=== PATIENT | female | born 1950 | race Caucasian/White ===

== ENCOUNTER → 2020-10-11 | Day surgery (SDC) | payer OTHER, MEDICARE ==
[~2020-10-11] VITALS: Ht 160 cm; Wt 106.8 kg
[~2020-10-11] MED LIST: ATORVASTATIN CA20 MG PO; BACLOFEN20 MG PO; BUSPIRONE HCL15 M1 PO; CLARITIN10 MG PO; IRON18 MG PO; JANTOVEN5 MG PO; LASIX20 MG PO; LEVOTHYROXINE50 MCG PO; METFORMIN HCL500 M1 PO; METOPROLOL SUCC50 MG PO; MYRBETRIQ25 MG PO; OMEPRAZOLE 20MG20 MG PO; OYSTER SHELL 51 EACH PO; PAROXETINE 20MG20 MG PO; PRESERVISION A1 EAC1 PO; TRAZODONE 100M100 MG PO; VENTOLIN HFA18 GM INH
[2020-10-11 08:01] LABS: HCT 44.4 % (37.0-47.0); HGB 14.6 g/dl (12.5-16.0); MCH 28.3 pg (25.0-31.0); MCHC 32.9 g/dL (32.0-36.0); MCV 86.2 fL (78.0-100.0); MPV 12.1 fL (6.0-9.5); RBC 5.15 M/uL (4.20-5.40); RDW 15.8 % (11.5-14.0); WBC 6.4 K/uL (4.0-10.5)
[2020-10-11 08:15] LABS: INR 1.15 (0.9-1.2)
[2020-10-11 08:27] LABS: ALBUMIN 3.5 g/dL (3.4-5.0); BILIRUBIN - TOTAL 0.8 mg/dL (0.2-1.0); BUN/CREAT RATIO (CALC) 27.3 RATIO; CREATININE 0.66 mg/dL (0.51-0.95); GLOBULIN (CALCULATION) 3.7 g/dL; POTASSIUM 3.7 mmol/L (3.5-5.1); TOTAL PROTEIN 7.2 g/dL (6.4-8.2)
== END | disposition home or self-care (01) ==
LOC: FAS 06:52
PROVIDERS: Surgery
DX: K22.2 Esophageal obstruction (principal); K31.9 Disease of stomach and duodenum, unspecified; K29.70 Gastritis, unspecified, without bleeding; K44.9 Diaphragmatic hernia without obstruction or gangrene; J44.9 Chronic obstructive pulmonary disease, unspecified; I10 Essential (primary) hypertension; E11.9 Type 2 diabetes mellitus without complications; F41.9 Anxiety disorder, unspecified; F32.9 Major depressive disorder, single episode, unspecified; M19.90 Unspecified osteoarthritis, unspecified site; E78.1 Pure hyperglyceridemia; E03.9 Hypothyroidism, unspecified; G47.33 Obstructive sleep apnea (adult) (pediatric); M81.0 Age-related osteoporosis without current pathological fracture; Z99.89 Dependence on other enabling machines and devices; Z79.84 Long term (current) use of oral hypoglycemic drugs; Z79.01 Long term (current) use of anticoagulants; Z79.899 Other long term (current) drug therapy
CPT/HCPCS: 36415; 80053; 85610; C1726; J2250; J2704; J7120

== ENCOUNTER 2021-11-02 15:55 | Emergency (ER) | payer MEDICARE, OTHER ==
[2021-11-02] MEDS ORDERED: NORCO 5-325 TA1 EACH PO (18:01)
== END 2021-11-02 20:26 | disposition home or self-care (01) ==
LOC: FER 15:55
DX: S32.049A Unspecified fracture of fourth lumbar vertebra, initial encounter for closed fracture (principal); M25.552 Pain in left hip; E66.9 Obesity, unspecified; W19.XXXA Unspecified fall, initial encounter
CPT/HCPCS: 72131

== ENCOUNTER 2021-11-05 11:54 | Inpatient (IN) | payer MEDICARE, OTHER ==
[~2021-11-05] VITALS: Ht 160 cm; Wt 105.0 kg
[~2021-11-05 11:54] MED LIST changes: +NORCO 5-325 TA1 EACH PO
[2021-11-05 13:45] LABS: BASOPHIL 0.3 % (0-2); EOSINOPHIL 0.3 % (0-7); HCT 48.3 % (37.0-47.0); HGB 15.4 g/dl (12.5-16.0); MCH 28.3 pg (25.0-31.0); MCHC 31.9 g/dL (32.0-36.0); MCV 88.6 fL (78.0-100.0); MONOCYTE 5.4 % (0-12); MPV 12.5 fL (6.0-9.5); NEUTROPHIL 86.7 % (41-80); NRBC 0; PLT 244 K/uL (150-400); RBC 5.45 M/uL (4.20-5.40); RDW 15.1 % (11.5-14.0); WBC 12.2 K/uL (4.0-10.5)
[2021-11-05 13:59] LABS: INR 2.5 (0.9-1.2); PROTHROMBIN TIME 26.1 SECONDS (11.9-13.9); PTT 36.6 SECONDS (24.9-34.6)
[2021-11-05 14:07] LABS: CREATININE 0.7 mg/dL (0.51-0.95)
[2021-11-05 16:12] LABS: BILIRUBIN NEGATIVE (NEGATIVE); BLOOD NEGATIVE Ery/uL (NEGATIVE); CLARITY CLEAR (CLEAR); COLOR YELLOW (YELLOW); GLUCOSE (U) NORMAL (NORMAL); LEUKOCYTES TRACE Leu/uL (NEGATIVE); NITRITE POSITIVE (NEGATIVE); PROTEIN NEGATIVE (NEGATIVE); SPECIFIC GRAVITY 1.015 (1.001-1.030); pH 7.5 (5.0-9.0)
[2021-11-05 16:23] LABS: BACTERIA 4+
[2021-11-06 07:06] LABS: BASOPHIL 0.3 % (0-2); EOSINOPHIL 0.5 % (0-7); HCT 46.5 % (37.0-47.0); HGB 14.9 g/dl (12.5-16.0); LYMPHOCYTE 10.3 % (15-48); MCH 28.5 pg (25.0-31.0); MCV 88.9 fL (78.0-100.0); MPV 12.3 fL (6.0-9.5); NEUTROPHIL 81.6 % (41-80); NRBC 0; PLT 228 K/uL (150-400); RBC 5.23 M/uL (4.20-5.40); RDW 15.2 % (11.5-14.0); WBC 9.8 K/uL (4.0-10.5)
[2021-11-06 07:12] LABS: INR 3.02 (0.9-1.2); PROTHROMBIN TIME 30.2 SECONDS (11.9-13.9)
[2021-11-06 07:27] LABS: BUN/CREAT RATIO (CALC) 32.4 RATIO; CREATININE 0.71 mg/dL (0.51-0.95); POTASSIUM 3.8 mmol/L (3.5-5.1)
[2021-11-06] MEDS ORDERED: ALLERGY RELIEF5 MG PO (11:32)
[2021-11-06] MEDS ORDERED: JANTOVEN1 MG PO (11:36)
[2021-11-06] MEDS ORDERED: JANTOVEN5 MG PO (11:36)
[2021-11-06] MEDS ORDERED: IPRATROPIUM BRO15 ML (11:38)
--- NOTE | 2021-11-06 13:51 | NUR ---
MET WITH PT AND SON. PT WILL HAVE SURGERY ON HER ANKLE WHEN HER INR IS APPROPRIATE. PT AND SON HAVE CHOSEN [facility].
[2021-11-07 07:17] LABS: BASOPHIL 0.4 % (0-2); EOSINOPHIL 1.6 % (0-7); HCT 44.5 % (37.0-47.0); HGB 14.2 g/dl (12.5-16.0); INR 1.75 (0.9-1.2); LYMPHOCYTE 11.3 % (15-48); MCH 28.5 pg (25.0-31.0); MCHC 31.9 g/dL (32.0-36.0); MCV 89.4 fL (78.0-100.0); MONOCYTE 7.6 % (0-12); MPV 12.6 fL (6.0-9.5); NEUTROPHIL 78.8 % (41-80); NRBC 0; PLT 212 K/uL (150-400); PROTHROMBIN TIME 19.8 SECONDS (11.9-13.9); RBC 4.98 M/uL (4.20-5.40); RDW 15.5 % (11.5-14.0); WBC 7.5 K/uL (4.0-10.5)
[2021-11-07 07:50] LABS: ALBUMIN 3.3 g/dL (3.4-5.0); BUN/CREAT RATIO (CALC) 26.2 RATIO; CREATININE 0.61 mg/dL (0.51-0.95); GLOBULIN (CALCULATION) 3.7 g/dL; POTASSIUM 3.7 mmol/L (3.5-5.1)
--- NOTE | 2021-11-07 15:40 | NUR ---
11/07/21 Ms. Marshall lives at [facility]. She has a C-PAP and s. chair. Her son and [id number] do the laundry and provide transportation to the grocery and appointments. - Ms. Marshall has requested placement at [facility] after her surgery. - A referral was sent to [facility] due begin to evaluate if they will accept her financially. Ms. Marshall has Medicare B and Passport By [employer]. - Sharmila Marshall, [id number] / 2nd POA, was informed of the fore mentioned with recommendations to consider alternative DC plans if [facility] will not accept as Medicaid pending.
[2021-11-07 15:41] LABS: INR 1.49 (0.9-1.2); PROTHROMBIN TIME 17.5 SECONDS (11.9-13.9)
[2021-11-08 06:40] LABS: INR 1.2 (0.9-1.2); PROTHROMBIN TIME 14.8 SECONDS (11.9-13.9)
[2021-11-09 06:11] LABS: HCT 40.5 % (37.0-47.0); HGB 12.5 g/dl (12.5-16.0); MCHC 30.9 g/dL (32.0-36.0); MCV 90.6 fL (78.0-100.0); MPV 12.5 fL (6.0-9.5); RBC 4.47 M/uL (4.20-5.40); RDW 15.1 % (11.5-14.0); WBC 10.4 K/uL (4.0-10.5)
[2021-11-10 06:45] LABS: BASOPHIL 0.6 % (0-2); EOSINOPHIL 3.9 % (0-7); HGB 12.4 g/dl (12.5-16.0); MCH 28.3 pg (25.0-31.0); MCV 91.3 fL (78.0-100.0); MONOCYTE 9.8 % (0-12); MPV 12.7 fL (6.0-9.5); NEUTROPHIL 59.2 % (41-80); NRBC 0; PLT 223 K/uL (150-400); RBC 4.38 M/uL (4.20-5.40); RDW 15.2 % (11.5-14.0); WBC 6.3 K/uL (4.0-10.5)
[2021-11-10 07:20] LABS: CREATININE 0.7 mg/dL (0.51-0.95); POTASSIUM 3.6 mmol/L (3.5-5.1)
--- NOTE | 2021-11-10 11:08 | NUR ---
PER DR. DARNELL HE IS CHANGING PT FROM OBS TO INPAT ON 11/10/21.
--- NOTE | 2021-11-11 11:51 | NUR ---
11/11/21 [facility] has approved for admission clinically and financiaaly. They are waiting on [facility] to respond to the PSSAR.
--- NOTE | 2021-11-11 13:47 | NUR ---
11/11/21 Ms. Bergman has been approved to admission to [facility]. She meets EMS criteria per Dr. Mao.
[2021-11-11] MEDS ORDERED: ELIQUIS5 MG PO (13:51)
[2021-11-11] MEDS ORDERED: DULCOLAX5 MG PO (13:51)
[2021-11-11] MEDS ORDERED: SACCHAROMYCES250 MG PO (13:51)
[2021-11-11] MEDS ORDERED: NORCO 5-325 TA1 EACH PO (13:51)
== END 2021-11-11 16:40 | DRG 493 ==
LOC: FER 11:54 → FMS 15:17
PROVIDERS: Emergency Medicine; Nurse Practitioner Family; Orthopaedic Surgery; ADMIT Internal Medicine
PROC: 0QSJ04Z Reposition Right Fibula with Internal Fixation Device, Open Approach (ICD-10-PCS; principal; 2021-11-08 12:00)
DX: S82.851A Displaced trimalleolar fracture of right lower leg, initial encounter for closed fracture (principal); N39.0 Urinary tract infection, site not specified; Z68.41 Body mass index [BMI] 40.0-44.9, adult; E66.01 Morbid (severe) obesity due to excess calories; B96.20 Unspecified Escherichia coli [E. coli] as the cause of diseases classified elsewhere; F89 Unspecified disorder of psychological development; Z20.822 Contact with and (suspected) exposure to COVID-19; I44.4 Left anterior fascicular block; B96.89 Other specified bacterial agents as the cause of diseases classified elsewhere; I51.7 Cardiomegaly; I34.8 Other nonrheumatic mitral valve disorders; W19.XXXA Unspecified fall, initial encounter; J45.909 Unspecified asthma, uncomplicated; E78.5 Hyperlipidemia, unspecified; E11.65 Type 2 diabetes mellitus with hyperglycemia; E03.9 Hypothyroidism, unspecified; I10 Essential (primary) hypertension; K21.9 Gastro-esophageal reflux disease without esophagitis; D64.9 Anemia, unspecified; G47.00 Insomnia, unspecified; Z83.3 Family history of diabetes mellitus; Z86.718 Personal history of other venous thrombosis and embolism; Z86.711 Personal history of pulmonary embolism; Z79.01 Long term (current) use of anticoagulants; Y92.512 Supermarket, store or market as the place of occurrence of the external cause; Z79.84 Long term (current) use of oral hypoglycemic drugs
CPT/HCPCS: 36415; 70450; 71045; 73590; 73600; 73610; 76000; 80048; 80053; 81001; 83036; 85025; 85610; 85730; 87076; 87088; 87186; 93005; 94010; 94762; 97162; 97167; 97530; 97530-GP; 97535; C1713; C1769; J0696; J0697; J1100; J1170; J1650; J1885; J2250; J2270; J2405; J2704; J2795; J3010; J3430; J7030; J7040; J7120; U0002